=== PATIENT | female | born 1965 | race African-American/Black ===

== ENCOUNTER 2020-02-01 11:51 | Emergency (ER) | payer OTHER ==
[~2020-02-01] VITALS: Ht 165.1 cm; Wt 94.3 kg
[2020-02-01] MEDS ORDERED: ACID REDUCER20 M1 (12:19)
[2020-02-01] MEDS ORDERED: CIPRO500 MG PO (15:50)
== END 2020-02-01 16:12 | disposition home or self-care (01) ==
LOC: ER 11:51
DX: R30.0 Dysuria (principal)

== ENCOUNTER 2020-05-16 12:20 | Emergency (ER) | payer OTHER ==
[~2020-05-16] VITALS: Ht 165.1 cm; Wt 95.3 kg
[~2020-05-16 12:20] MED LIST: ACID REDUCER20 M1; CIPRO500 MG PO
[2020-05-16] MEDS ORDERED: VASOTEC2.5 MG (12:49)
[2020-05-16] MEDS ORDERED: PYRIDIUM200 MG (12:49)
[2020-05-16] MEDS ORDERED: PYRIDIUM100 M1 PO (17:17)
[2020-05-16] MEDS ORDERED: KETO10TA2 PO (17:17)
[2020-05-16] MEDS ORDERED: CEFPODOXIME PR200 MG PO (17:17)
== END 2020-05-16 17:50 | disposition home or self-care (01) ==
LOC: ER 12:20
DX: N39.0 Urinary tract infection, site not specified (principal); R10.31 Right lower quadrant pain; B96.1 Klebsiella pneumoniae [K. pneumoniae] as the cause of diseases classified elsewhere; Z03.818 Encounter for observation for suspected exposure to other biological agents ruled out

== ENCOUNTER 2020-08-24 12:24 | Emergency (ER) | payer OTHER ==
[~2020-08-24] VITALS: Ht 165.1 cm; Wt 97.5 kg
[~2020-08-24 12:24] MED LIST changes: +CEFPODOXIME PR200 MG PO; +KETO10TA2 PO; +PYRIDIUM100 M1 PO; +PYRIDIUM200 MG; +VASOTEC2.5 MG
== END 2020-08-24 17:05 | disposition home or self-care (01) ==
LOC: ER 12:24
DX: N39.0 Urinary tract infection, site not specified (principal)

== ENCOUNTER 2021-04-14 06:55 | Emergency (ER) | payer OTHER ==
[~2021-04-14] VITALS: Ht 165.1 cm; Wt 105.2 kg
== END 2021-04-14 15:30 ==
LOC: ER 06:55
DX: N39.0 Urinary tract infection, site not specified (principal); M54.5 Low back pain; Z03.818 Encounter for observation for suspected exposure to other biological agents ruled out

== ENCOUNTER 2021-09-15 08:30 | Emergency (ER) | payer OTHER ==
[~2021-09-15] VITALS: Ht 165.1 cm; Wt 104.3 kg
== END 2021-09-15 12:20 | disposition home or self-care (01) ==
LOC: ER 08:30
DX: B34.9 Viral infection, unspecified (principal); J32.8 Other chronic sinusitis

== ENCOUNTER → 2022-06-10 | Emergency (ER) | payer OTHER ==
[~2022-06-10] VITALS: Ht 167.6 cm; Wt 122.5 kg
== END | disposition left against medical advice (07) ==
LOC: ER 11:35
DX: M79.662 Pain in left lower leg (principal)

== ENCOUNTER 2023-08-27 11:53 | Emergency (ER) | payer OTHER ==
[~2023-08-27] VITALS: Ht 165.1 cm; Wt 88.5 kg
[2023-08-27 14:19] LABS: PH,URINE 5.5 (5.0-8.0); URINE APPEARANCE Clear; URINE BILIRRUBIN Negative (NEGATIVE); URINE BLOOD Negative; URINE COLOR Yellow; URINE GLUCOSE Negative (NEGATIVE); URINE LEUKOCYTE Negative; URINE NITRATE Negative; URINE PROTEIN Negative (NEGATIVE); URINE UROBILINOGEN 0.2 E.U./dl
[2023-08-27 14:23] LABS: HEMATOCRIT 42.4 % (36.0-45.00); HEMOGLOBIN 13.6 g/dL (12.0-15.00); MEAN CELL VOLUME 81.6 fL (80.00-100.00); MEAN CORPUSCULAR HEMOGLOBIN 26.2 pg (27.00-32.0); MEAN CORPUSCULAR HGB CONC 32.1 g/dl (32.0-36.0); PLATELET COUNT 385 K/uL (150-450); RED CELL DISTRIBUTION WIDTH 17.1 % (11.5-14.5); URINE BACTERIA 22.6 uL (0.0-1933); URINE EPITHELIAL CELLS 3.5 uL (0.0-38.8); URINE RBC 2.4 uL (0.0-20.8)
[2023-08-27] MEDS ORDERED: MACRODANTIN100 M1 PO (15:24)
[2023-08-27] MEDS ORDERED: DICLOFENAC SODI75 MG PO (15:24)
== END 2023-08-27 16:08 | disposition home or self-care (01) ==
LOC: ER → EDBD 11:54 → ER 11:54
PROVIDERS: General Practice
DX: N39.0 Urinary tract infection, site not specified (principal); M54.89 Other dorsalgia; I10 Essential (primary) hypertension